=== PATIENT | female | born 1980 | race African-American/Black ===

== ENCOUNTER 2017-02-15 15:53 | Emergency (ER) | payer OTHER ==
[~2017-02-15] VITALS: Ht 170.2 cm; Wt 73.0 kg
[~2017-02-15 15:53] MED LIST: BUPR150T3 PO; QUET50TA11 PO
[2017-02-15] MEDS ORDERED: KETOROLAC 60MG/2ML VIAL IM ONE (17:30)
[2017-02-15 18:05] LABS: BASOPHILS % 0.4 % (0.0-2.0); EOSINOPHILS % 1.1 % (0.0-5.0); HEMATOCRIT. 34.9 % (36.0-48.0); HEMOGLOBIN. 11.5 g/dL (12.0-16.0); LYMPHOCYTES % 34.3 % (20.0-50.0); MEAN CORPUSCULAR HEMOGLOBIN 28.2 pg (28.0-32.0); MEAN CORPUSCULAR HGB CONC 32.9 g/dL (31.0-37.0); MEAN CORPUSCULAR VOLUME 85.6 fL (81.0-99.0); MEAN PLATELET VOLUME 6.9 fl (7.4-10.4); MONOCYTES % 7.5 % (2.0-8.0); NEUTROPHILS % 56.7 % (40.0-76.0); PLATELET 364 x1000/uL (130-400); RED BLOOD CELL COUNT 4.08 mill/uL (4.2-5.4); RED CELL DISTRIBUTION WIDTH 18.2 % (11.6-14.6)
[2017-02-15 18:12] LABS: CHLORIDE 109 mEq/L (98-107)
[2017-02-15 18:13] LABS: INDEX HEMOLYSI 1 (1-3); INDEX ICTERIC 1 (1-4); INDEX LIPEMIC 1 (1-3)
[2017-02-15 18:15] LABS: CALCIUM 8.8 mg/dL (8.5-10.1)
[2017-02-15 18:20] LABS: ALANINE AMINOTRANSFERASE 19 IU/L (13-61); ALBUMIN 3.3 g/dL (3.4-5.0); ANION GAP 14; CARBON DIOXIDE 25 mEq/L (21-32); LIPASE 131 IU/L (73-393); UREA NITROGEN BLOOD 8 mg/dL (7-21); eGFR > 60 mL/min (>60)
[2017-02-15 18:22] VITALS: BP 115/80
[2017-02-15] MEDS ORDERED: LORAZEPAM 0.5MG TABLET PO ONE (18:30)
[2017-02-15 18:58] LABS: CLARITY URINE CLEAR (CLEAR); COLOR URINE DARK YELLOW (YELLOW); GLUCOSE URINE NEGATIVE (NEGATIVE); KETONES URINE 1+ (NEGATIVE); LEUKOCYTE ESTERASE URINE NEGATIVE (NEGATIVE); NITRITE URINE NEGATIVE (NEGATIVE); OCCULT BLOOD URINE NEGATIVE (NEGATIVE); PROTEIN URINE NEGATIVE (NEGATIVE); SPECIFIC GRAVITY URINE 1.028 (1.005-1.030)
[2017-02-15 19:27] LABS: *AMPHETAMINES SCREEN URINE NEGATIVE (NEGATIVE); *BARBITURATES SCREEN URINE NEGATIVE (NEGATIVE); *BENZODIAZEPINES SCREEN URINE NEGATIVE (NEGATIVE); CANNABINOID URINE SCREEN NEGATIVE (NEGATIVE); ECSTASY MDMA SCREEN URINE NEGATIVE (NEGATIVE); METHADONE URINE SCREEN NEGATIVE (NEGATIVE); PHENCYCLIDINE URINE SCREEN NEGATIVE (NEGATIVE)
[2017-02-15 19:32] LABS: *COCAINE SCREEN URINE PRESUMTIVE POSITIVE (NEGATIVE)
[2017-02-15 19:33] LABS: OPIATES URINE SCREEN PRESUMTIVE POSITIVE (NEGATIVE)
== END 2017-02-16 14:00 | disposition home or self-care (01) ==
LOC: ER 15:53
DX: R10.31 Right lower quadrant pain (principal); M54.5 Low back pain; K76.0 Fatty (change of) liver, not elsewhere classified; D64.9 Anemia, unspecified; F14.10 Cocaine abuse, uncomplicated; F11.10 Opioid abuse, uncomplicated
CPT/HCPCS: 36415; 80053; 80305; 81003; 83690; 85025; 96372; 99284; J1885

== ENCOUNTER 2017-08-08 15:13 | Emergency (ER) | payer OTHER ==
[~2017-08-08] VITALS: Ht 170.2 cm; Wt 64.0 kg
[~2017-08-08 15:13] MED LIST changes: +QUET50TA PO; -QUET50TA11 PO
[2017-08-08 15:15] VITALS: BP 124/79
== END 2017-08-08 19:30 | disposition left against medical advice (07) ==
LOC: ER 15:43
DX: J11.1 Influenza due to unidentified influenza virus with other respiratory manifestations (principal); Z53.21 Procedure and treatment not carried out due to patient leaving prior to being seen by health care provider

== ENCOUNTER 2024-12-18 16:20 | Emergency (ER) | payer OTHER ==
[~2024-12-18] VITALS: Ht 170.2 cm; Wt 73.5 kg
[2024-12-18 16:24] VITALS: O2SAT 100
[2024-12-18 16:36] VITALS: BP 117/47; PULSE 91; RESP 16; TEMP 36.8; O2SAT 97
[2024-12-18 16:56] LABS: BASOPHILS % 0.4 % (0.0-2.0); EOSINOPHILS % 1.9 % (0.0-5.0); HEMATOCRIT. 24.7 % (36.0-48.0); HEMOGLOBIN. 7.1 g/dL (12.0-16.0); LYMPHOCYTES % 34.1 % (20.0-50.0); MEAN CORPUSCULAR HEMOGLOBIN 19.8 pg (28.0-32.0); MEAN CORPUSCULAR HGB CONC 28.6 g/dL (31.0-37.0); MEAN PLATELET VOLUME 7.1 fl (7.4-10.4); MONOCYTES % 6.8 % (2.0-8.0); NEUTROPHILS % 56.8 % (40.0-76.0); PLATELET 316 x1000/uL (130-400); RED BLOOD CELL COUNT 3.58 mill/uL (4.2-5.4); WHITE BLOOD COUNT 7.2 x1000/uL (4.5-11.0)
[2024-12-18 16:57] LABS: ADD RBC MORPHOLOGY YES; DIFFERENTIAL COMMENT 1
[2024-12-18 19:03] LABS: ANISOCYTOSIS 1+; HYPOCHROMASIA 2+; MICROCYTOSIS 3+; OVALOCYTES 1+; PLATELET ESTIMATE NORMAL
[2024-12-18] MEDS ORDERED: [UNRECOGNIZED DRUG - CODE] PO (19:33)
== END 2024-12-18 19:46 | disposition home or self-care (01) ==
LOC: ER 16:20
DX: N81.4 Uterovaginal prolapse, unspecified (principal); F15.90 Other stimulant use, unspecified, uncomplicated; F14.90 Cocaine use, unspecified, uncomplicated; Z79.899 Other long term (current) drug therapy; Z98.890 Other specified postprocedural states
CPT/HCPCS: 36415; 85025; 86850; 86900; 99284